=== PATIENT | female | born 1985 | race Caucasian/White ===

== ENCOUNTER 2021-03-01 14:46 | Emergency (ER) | payer OTHER, SELFPAY ==
[2021-03-01 14:50] VITALS: BP 118/74; PULSE 96; RESP 18; TEMP 36.3; O2SAT 99
--- NOTE | 2021-03-01 14:57 | ED.URI ---
HPI - URI/Sore Throat General Chief Complaint: Upper Respiratory Infection Stated Complaint: head pressure and ear pain Time Seen by Provider: 03/01/21 14:57 Source: patient and RN notes reviewed Mode of arrival: ambulatory Limitations: no limitations History of Present Illness HPI Narrative: 35-year-old female presents to the [facility] the [facility] with complaints of sinus congestion and bilateral ear pain for 7 to 10 days. Patient has tried multiple [id number] products to include Zyrtec, Flonase, allergy medication and cold medication with no relief. Patient states the only antibiotic medication she can take is Keflex. Has never had a reaction to that. MD elicited complaint: sore throat, nasal congestion and sinus pain Related Data Home Medications Medication Instructions Recorded Confirmed [id number] See Rx Instructions .ROUTE 03/01/21 03/01/21 .COMPLEX PRN cetirizine 10 mg PO DAILY 03/01/21 03/01/21 citalopram 10 mg PO DAILY 03/01/21 03/01/21 Allergies Allergy/AdvReac Type Severity Reaction Status Date / Time doxycycline Allergy Intermediate Hives / Verified 03/01/21 15:10 Red Face cefixime Allergy Mild Unknown Verified 03/01/21 15:10 ciprofloxacin Allergy Mild Unknown Verified 03/01/21 15:10 latex Allergy Mild Unknown Verified 03/01/21 15:10 Penicillins Allergy Mild RASH/HIVES Verified 03/01/21 15:10 Sulfa (Sulfonamide Allergy Mild Unknown Verified 03/01/21 15:10 Antibiotics) azithromycin Allergy Unknown HIVES Verified 03/01/21 15:10 CIPROFLOXACIN HCL Allergy Mild Unknown Uncoded 03/01/21 15:10 Review of Systems Review of Systems: All systems reviewed & are unremarkable except as noted in HPI and below Constitutional: Constitutional: Reports no additional constitutional complaints, Denies chills and Denies fever(s) Eyes: Eyes: Reports no additional eye complaints ENT: Reports as per HPI and Reports nasal congestion Cardiovascular: Cardiovascular: Reports no additional cardiovascular complaints Respiratory: Respiratory: Reports no additional respiratory complaints Gastrointestinal: Gastrointestinal: Reports no additional gastrointestinal complaints Musculoskeletal: Musculoskeletal: Reports no additional musculoskeletal complaints Integumentary/Breasts: Skin/Breast: Reports system reviewed and no additional complaints, except as docu Neurologic: Reports system reviewed and no additional complaints, except as documented Psychiatric: Psychiatric: Reports no additional psychiatric complaints Allergic/Immunologic: Allergic/Immunologic: Reports no additional allergic/immunologic complaints [facility] Past Medical History Medical History (Updated 03/02/21 @ 12:47 by Janell Haines) Depression Migraines Seasonal allergies Social History Social History (Updated 03/02/21 @ 12:42 by Janell Haines) Living arrangements: with family Gender identity (if verbalized by the patient): Female Comments At the time of my signature, I reviewed and agree with the nursing past medical, surgical, social, and family history. There is no relevant family history pertinent to the patient complaint. Exam Const: General: healthy appearing, no acute distress and alert Nutritional Appearance: well nourished and obese Orientation/consciousness: patient oriented x3 Limitations: no limitations HENMT: Head: normal to inspection Ears: external ears normal, EAC's normal and TM abnormal bulging bilateral, dull and wth effusion serous bilateral; not erythematous General nose exam: Abnormal mucous membranes and turbinates present boggy bilateral and erythematous bilateral and Nasal discharge present clear and mucoid Face and sinus: normal facial exam, face symmetric and sinus tenderness frontal and maxillary Mouth: Yes moist mucous membranes Throat: uvula midline and postnasal drainage Eyes: Conjunctivae: conjunctivae normal Pupils: Equal, round and reactive pupils present Neck: Neck: normal visu
== END 2021-03-01 15:15 | disposition home or self-care (01) ==
PROVIDERS: Emergency Provider Nurse Practitioner; PCP Family Medicine
DX: J01.90 Acute sinusitis, unspecified (principal)
CPT/HCPCS: 99213; G0463

== ENCOUNTER 2022-10-23 11:07 | Outpatient (CLI) | payer OTHER, SELFPAY | END 2022-10-23 11:08 | disposition home or self-care (01) | PROVIDERS: PCP Family Medicine | DX: H90.3 Sensorineural hearing loss, bilateral (principal) | CPT/HCPCS: 92552; 92556; 92567 ==